=== PATIENT | male | born 1965 | race African-American/Black ===

== ENCOUNTER 2021-05-31 05:01 | Day surgery (SDC) | payer BC ==
[2021-05-29 17:01] VITALS: BMI 29.9
[2021-05-31 10:54] VITALS: TEMP 97.1
[2021-05-31 14:57] VITALS: BP 122/74; PULSE 72
== END 2021-05-31 12:00 | disposition home or self-care (01) ==
LOC: JASU-ENDO 05:01
PROVIDERS: ATTEND Internal Medicine Gastroenterology
PROC: 0DBN8ZX Excision of Sigmoid Colon, Via Natural or Artificial Opening Endoscopic, Diagnostic (ICD-10-PCS; 2021-05-31)
PROC: 0DBH8ZX Excision of Cecum, Via Natural or Artificial Opening Endoscopic, Diagnostic (ICD-10-PCS; 2021-05-31)
PROC: 0DBK8ZX Excision of Ascending Colon, Via Natural or Artificial Opening Endoscopic, Diagnostic (ICD-10-PCS; principal; 2021-05-31 10:00)
DX: Z12.11 Encounter for screening for malignant neoplasm of colon (principal); D12.0 Benign neoplasm of cecum; D12.2 Benign neoplasm of ascending colon; D12.5 Benign neoplasm of sigmoid colon; D12.7 Benign neoplasm of rectosigmoid junction; Z86.010 Personal history of colon polyps
CPT/HCPCS: 88305-TC